=== PATIENT | male | born 1945 | race Caucasian/White ===

== ENCOUNTER 2017-01-10 15:04 | Inpatient (IN) | payer MEDICARE, BC ==
[~2017-01-10] VITALS: Ht 177.8 cm; Wt 65.8 kg
--- NOTE | 2017-01-10 15:23 | NUR ---
RECEIVED TO ROOM 2233 AT THIS TIME FROM DOCTOR'S OFFICE AT THIS TIME. MEDICATION LIST UPDATED AND REVIEWED WITH PT. ASSESSMENT AND HISTORY OBTAINED PER FLOWSHEET. 20G IV SITED TO PT'S RIGHT FOREARM X1 ATTEMPT WITH BRISK BLOOD RETURN PRESENT. AT BEDSIDE. ORIENTED TO ROOM AND CALL LIGHT. WILL CONTINUE WITH PLAN OF CARE.
[2017-01-10] MEDS ORDERED: LIPITOR20 MG PO (15:51)
[2017-01-10] MEDS ORDERED: HYTRIN10 MG PO (15:52)
[2017-01-10] MEDS ORDERED: PROTONIX40 MG PO (15:52)
[2017-01-10] MEDS ORDERED: PLAVIX75 MG PO (15:52)
[2017-01-10] MEDS ORDERED: SYNTHROID25 MCG PO (15:53)
[2017-01-10] MEDS ORDERED: BAYER CHEWABLE81 MG PO (15:53)
[2017-01-10] MEDS ORDERED: DULCOLAX5 MG PO (15:54)
[2017-01-10 16:07] VITALS: Ht 177.8 cm; Wt 65.8 kg
[2017-01-10 16:49] LABS: MCH 30.7 pg (26.0-34.0); MCHC 31.4 g/dL (31.0-37.0); MCV 97.8 fL (80.0-100.0); MEAN PLATELET VOLUME 8.5 fL (7.4-10.4); RBC 2.25 10x6/uL (4.20-6.10); WBC 2.8 10x3/uL (4.8-10.8)
[2017-01-10 16:56] LABS: HEMOGLOBIN 6.9 g/dL (13.5-17.5); PLATELET COUNT 185 10x3/uL (130-400)
[2017-01-10 17:08] LABS: ALBUMIN 3.3 g/dL (3.4-5.0); BILIRUBIN - TOTAL 1.67 mg/dL (0.2-1.3); CALCIUM 8.3 mg/dL (8.5-10.1); CARBON DIOXIDE 27.1 mmol/L (21.0-32.0); CREATININE - SERUM 1.3 mg/dL (0.6-1.3); POTASSIUM - SERUM 4.1 mmol/L (3.5-5.1); PROTEIN - SERUM 6.9 g/dL (6.4-8.2)
[2017-01-10 17:36] LABS: APTT 30.7 SECONDS (22.8-39.4); INR 1.05 (0.85-1.17); PROTIME 13.6 SECONDS (11.6-15.0)
[2017-01-10 18:15] LABS: APPEARANCE CLEAR (CLEAR); BILIRUBIN NEGATIVE (NEGATIVE); COLOR YELLOW (YELLOW); GLUCOSE NEGATIVE (NEGATIVE); KETONE NEGATIVE (NEGATIVE); LEUKOCYTE ESTERASE NEGATIVE (NEGATIVE); NITRITE NEGATIVE (NEGATIVE); PROTEIN NEGATIVE (NEGATIVE)
[2017-01-10 18:29] LABS: EOSINOPHILS 7 % (0-7); LYMPHOCYTES 13 % (15-50); NEUTROPHILS 80 % (40-80)
[2017-01-10 18:32] LABS: PLATELET ESTIMATE NORMAL
[2017-01-10 19:00] VITALS: BP 113/45
--- NOTE | 2017-01-10 20:22 | NUR ---
PATIENT RESTING IN BED WITH AT BEDSIDE AND ELIZABETH SNEED PERFORMING VITALS. BED IN LOWEST POSITION AND CALL LIGHT WITHIN REACH. ENCOURAGED THE PATIENT TO CALL IF HE HAS NEEDS.
[2017-01-11] VITALS (18 sets, daily range): BP systolic 93–137; BP diastolic 46–77
--- NOTE | 2017-01-11 03:14 | NUR ---
LAB CALLED, BLOOD IS READY
--- NOTE | 2017-01-11 04:10 | NUR ---
STARTED INFUSING THE FIRST UNIT OF BLOOD
--- NOTE | 2017-01-11 07:45 | NUR ---
AWAKE AND ALERT AT THIS TIME. FIRST UNIT OF PRBC'S FINISHED AND PT TOLERATED WITHOUT ISSUE. AT BEDSIDE. CALL LIGHT IN REACH, WILL CONTINUE WITH PLAN OF CARE.
--- NOTE | 2017-01-11 08:16 | NUR ---
SECOND UNIT OF BLOOD STARTED AT 100 ML/HR AT THIS TIME. IV TO RIGHT FOREARM PATENT WITH NO S/S OF INFILTRATION PRESENT. SCHEDULED MEDICATIONS ADMINISTERED AT THIS TIME. ASSESSMENT PERFORMED PER FLOWSHEET. CALL LIGHT IN REACH, DENIES NEEDS. WILL CONTINUE WITH PLAN OF CARE.
--- NOTE | 2017-01-11 09:14 | NUR ---
Patient Name: RUBENS PLASENCIA Admission Status: Elective Accout number: [id number] Admission Date: 01-10-2017 : 1945 Admission Diagnosis: Attending: KRISTOPHER Current LOS: 1 Anticipated DC Date: 01-14-2017 Planned Disposition: Home Primary Insurance: MEDICARE A & B Discharge Planning Comments: CM MET WITH PATIENT REGARDING D/C NEEDS AND PLANS. PATIENT STATED HE LIVES WITH HIS TENNILLE AND SHE WILL DRIVE HIM HOME AT DISCHARGE. PATIENT STATED HIS HOME IS SAFE AND HE HAS NO STEPS OR STAIRS AT HIS HOME. PATIENT IS INDEPENDENT WITH HIS CARE AND HAS NO DME AT HOME. PATIENTS PCP IS DR. ABEL JOSE IN [place] AND USES [facility] IN [place] FOR HIS PHARMACY. PATIENT DOES NOT WANT HOME HEALTH AT THIS TIME. CM WILL CONTINUE TO FOLLOW PATIENT WITH D/C NEEDS AND PLANS. PCP DR. ABEL HATFIELD IN [place]- [phone] [place] () [phone] [employer] Technician: Patricia Castillo Is the patient Alert and Oriented? Yes 0 * How many steps to enter\exit or inside your home? 0 0 * PCP DR. ABEL JOSE IN [place] 0 * Pharmacy [facility] IN [place] 0 * Preadmission Environment Home with Family 0 * ADLs Independent 0 * Equipment None 0 * List name and contact numbers for known caregivers / representatives who currently or will assist patient after discharge: TENNILLE () [phone] 0 * Community resources currently utilized None 0 * Additional services required to return to the preadmission environment? Yes 0 * Can the patient safely return to the preadmission environment? Yes 0 * Has this patient been hospitalized within the prior 30 days at any hospital? No 0 Grand Total: 0
--- NOTE | 2017-01-11 10:20 | NUR ---
BLOOD TRANSUFION COMPLETE AND PT TOLERATED WITHOUT DIFFICULTY. DENIES NEEDS AT THIS TIME. MAINTENANCE FLUID RE-STARTED PER ORDER. DENIES NEEDS. CALL LIGHT IN REACH, WILL CONTINUE WITH PLAN OF CARE.
--- NOTE | 2017-01-11 12:25 | NUR ---
EATING AT THIS TIME. AT BEDSIDE. CALL LIGHT IN REACH. WILL CONTINUE WITH PLAN OF CARE.
--- NOTE | 2017-01-11 14:20 | NUR ---
AMBULATING IN HALLWAY INDEPENDENTLY AT THIS TIME. AT SIDE. DENIES NEEDS AT THIS TIME. PT HAS SHOWERED AND LINENS CHANGED. CALL LIGHT IN REACH, WILL CONTINUE WITH PLAN OF CARE.
[2017-01-11 14:57] LABS: BASOPHILS 0 % (0-2); EOSINOPHILS 0 % (0-7); IMMATURE GRANULOCYTES 0.2 % (0-5); LYMPHOCYTES 1.9 % (15-50); MCH 30.8 pg (26.0-34.0); MCHC 31.6 g/dL (31.0-37.0); MCV 97.7 fL (80.0-100.0); MONOCYTES 1.5 % (2-11); NEUTROPHILS 96.4 % (40-80); PLATELET COUNT 206 10x3/uL (130-400); RDW 17.7 % (11.5-14.5)
[2017-01-11 14:58] LABS: HEMATOCRIT 30.1 % (42.0-54.0); HEMOGLOBIN 9.5 g/dL (13.5-17.5); RBC 3.08 10x6/uL (4.20-6.10); WBC 9.4 10x3/uL (4.8-10.8)
[2017-01-11 17:39] LABS: COLD SCREEN @ 4 DEGREES 1+ (NEGATIVE); COLD SCREEN ROOM TEMP NEGATIVE (NEGATIVE)
--- NOTE | 2017-01-11 19:35 | NUR ---
SCHEDULED MEDICATIONS ADMINSITERED AT THIS TIME. DENIES NEEDS. FAMILY AT BEDSIDE. WILL CONTINUE WITH PLAN OF CARE.
--- NOTE | 2017-01-11 22:53 | NUR ---
PATIENT RESTING IN BED WITH EYES CLOSED. NO SIGNS OF DISTRES NOTED. DENIES ANY NEEDS AT THIS TIME. BED LOW. CALL LIGHT IN REACH
[2017-01-12] VITALS: BP 124/46
--- NOTE | 2017-01-12 01:38 | NUR ---
PATIENT RESTING WITH EYES CLOSED. SCHEDULED MED GIVEN. NO SIGNS OF DISTRESS NOTED. DENIES NEEDS AT THIS TIME. BED LOW. CALL LIGHT IN REACH.
[2017-01-12 04:00] VITALS: BP 118/49
[2017-01-12 05:37] LABS: BILIRUBIN - DIRECT 0.3 mg/dL (0.00-0.30)
[2017-01-12 06:34] LABS: BILIRUBIN - INDIRECT 0.9 mg/dL (0.00-1.00); BILIRUBIN - TOTAL 1.2 mg/dL (0.2-1.3)
[2017-01-12 08:06] VITALS: BP 124/41
--- NOTE | 2017-01-12 08:20 | NUR ---
PT AOX4 RESP EVEN AND NONLABORED PT DENIES NEEDS AT THIS TIME IV TO LEFT FOREARM PATENT AND INTACT SRX2 BED IN LOWEST SETTING CALL LIGHT WITHIN REACH WILL CONTINUE TO MONITOR
[2017-01-12 13:03] VITALS: BP 133/52
[2017-01-12 17:18] VITALS: BP 120/46
--- NOTE | 2017-01-12 19:03 | NUR ---
IV DISCONTINUED WITH CATHETER INTACT AT THIS TIME. PT GIVEN DISCHARGE INSTRUCTIONS PT AND STATE THEY UNDERSTAND INSTRUCTIONS AT THIS TIME
--- NOTE | 2017-01-12 19:15 | NUR ---
PATIENT TAKEN DOWN IN A WHEELCHAIR BY ELIZABETH SNEED.
[2017-01-13 14:28] LABS: ANA REFLEX - ANTICHROMATIN ABS 0.2 AI (0.0-0.9); ANA REFLEX - CENTROMERE B ABS <0.2 AI (0.0-0.9); ANA REFLEX - DBL STRANDED DNA <1 IU/mL (0-9); ANA REFLEX - DIRECT Positive (Negative); ANA REFLEX - JO-1 AB <0.2 AI (0.0-0.9); ANA REFLEX - RNP ANTIBODIES <0.2 AI (0.0-0.9); ANA REFLEX - SCL-70 2.1 AI (0.0-0.9); ANA REFLEX - SJOGRENS AB SSA >8.0 AI (0.0-0.9); ANA REFLEX - SJOGRENS AB SSB <0.2 AI (0.0-0.9); ANA REFLEX - SMITH AB <0.2 AI (0.0-0.9)
== END 2017-01-12 19:15 | disposition home or self-care (01) | DRG 812 ==
LOC: D.MS 15:04
PROVIDERS: Internal Medicine Gastroenterology; ADMIT Internal Medicine Hematology & Oncology
DX: D64.9 Anemia, unspecified (principal); E78.5 Hyperlipidemia, unspecified; I25.10 Atherosclerotic heart disease of native coronary artery without angina pectoris

== ENCOUNTER 2017-01-26 14:30 | Outpatient (CLI) | payer MEDICARE, BC ==
[2017-01-25 10:48] VITALS: BP 109/39; BMI 21.5
--- NOTE | 2017-01-25 11:11 | NUR ---
BLOOD IS SHOWING AN ANTIBODY, NO COMPATIBLE BLOOD AT THIS TIME. BLOOD REDRAW DONE TO SEND TO [facility] FOR [facility]NLYSIS PER IRMA IN BLOOD BANK. 1110- SPOKE WITH MERISSA, DR. BOYD'S NURSE, TO INFORM HER OF ISSUE. PT REQUESTED THAT IV TO RIGHT ARM REMAIN IN FOR TOMORROW BLOOD TRANSFUSION. SALINE LOCKED, SWABCAP IN PLACE, AND COBAN DRESSING PLACED. PT TO CALL AND RETURN TOMORROW WHEN COMPATIBLE BLOOD IS AVAILABLE.
[~2017-01-26] VITALS: Ht 177.8 cm; Wt 68.2 kg
[~2017-01-26 14:30] MED LIST: BAYER CHEWABLE81 MG PO; DULCOLAX5 MG PO; HYTRIN10 MG PO; LIPITOR20 MG PO; PLAVIX75 MG PO; PROTONIX40 MG PO; SYNTHROID25 MCG PO
[2017-01-26 15:35] VITALS: Ht 177.8 cm; Wt 68.2 kg
--- NOTE | 2017-01-26 20:32 | NUR ---
2024 POST V.S. WNL IV DC'D WITH CATH INTACT. RELEASED IN , [facility]. DC INSTS REVIEWED VOICED UNDERSTANDING.
== END 2017-01-26 20:27 | disposition home or self-care (01) ==
LOC: D.OPS 14:30
DX: D64.9 Anemia, unspecified (principal)

== ENCOUNTER 2017-02-03 09:54 | Outpatient (CLI) | payer MEDICARE, BC ==
[~2017-02-03] VITALS: Ht 177.8 cm; Wt 68.2 kg
[2017-02-03 11:39] VITALS: BP 127/62; Ht 177.8 cm; Wt 68.2 kg
--- NOTE | 2017-02-03 18:36 | NUR ---
IV DC WITH CATHER TIP INTACT
== END 2017-02-03 19:01 | disposition home or self-care (01) ==
LOC: D.OPS 09:54
DX: D64.9 Anemia, unspecified (principal)

== ENCOUNTER 2017-04-18 10:59 | Outpatient (CLI) | payer MEDICARE, BC ==
[~2017-04-18] VITALS: Ht 177.8 cm; Wt 68.2 kg
[2017-04-18] MEDS ORDERED: PREDNISONE10 MG PO (14:28)
[2017-04-18] MEDS ORDERED: TEMAZEPAM30 MG (14:29)
[2017-04-18 14:32] VITALS: BP 128/33; Ht 177.8 cm; Wt 68.2 kg
--- NOTE | 2017-04-18 15:32 | NUR ---
1500- PT PREMEDED PER ORDERS. FIRST UNIT TRANSFUSING WITHOUT DIFFICULTY. VS RECORDED ON TRANSFUSION SHEET. AT BEDSIDE. WILL MONITOR. 1530- REPORT GIVEN TO LAINE Dias RN. PT UP OOB TO BR, VOIDED WITHOUT DIFFICULTY. NOW RESTING COMFORTABLY. DRINK AND CALL LIGHT WITHIN REACH.
--- NOTE | 2017-04-18 18:46 | NUR ---
1625 1ST UNIT BLOOD COMPLETED, PT UP TO BR VOIDS QS. LINE BEING FLUSHED WITH NS. 1645 2ND UNIT BLOOD CHECKED AT BEDSIDE BY THIS NURSE AND ELEANOR ROA RN, INITIATED BY ALARIS PUMP AT 50/CC/HR. 1700 DENIES PROBLEMS, RATE INCREASED TO 125/CC/HR, DENIES PROBLEMS. REG DIET SERVED. 1715 UP TO BR VOIDS QS, DENIES PROBLEMS, RATE INCREASED TO 175/CC/HR. 1730 DENIES PROBLEMS, RATE INCREASED TO 200/CC/HR. 1830 BLOOD NEAR COMPLETE. 1835 BLOOD COMPLETE, IV BEING FLUSHED WITH NS.
--- NOTE | 2017-04-18 19:56 | NUR ---
1929 IV HAS COMPLETED FLUSHING, DENIES PROBLEMS, DC'D WITH CATH INTACT. 1934 POST V.S. CHECK GOOD, DENIES PROBLEMS, VOIDS DC INSTS REVIEWED, RELEASED IN WC.
== END 2017-04-18 19:40 | disposition home or self-care (01) ==
LOC: D.OPS 10:59
DX: D64.9 Anemia, unspecified (principal)